=== PATIENT | male | born 1960 | race Caucasian/White ===

== ENCOUNTER → 2021-01-17 | Day surgery (SDC) | payer MEDICARE, MEDICAID ==
[~2021-01-17] MED LIST: IPRATRPIUM/ALBUTEROL 0.5/2.5MG 3 ML NEBU. NEB PRN; IV RINGERS SOLUTION,LACTATED 1,000 ML IV SCH; LIDOCAINE 2% PF 5 ML VIAL. ONE; MIDAZOLAM HCL PF 2 MG/2 ML VIAL. IV ONE; ONDANSETRON PF 4 MG/2 ML VIAL. IV PRN; OXYC5TAB98 PO; PROPOFOL 10,000 MCG/ML (20ML) VIAL IV ONE
[2021-01-17 14:14] VITALS: BP 161/91
== END | disposition home or self-care (01) ==
LOC: SURG 11:37
PROVIDERS: ATTEND Internal Medicine Gastroenterology
DX: Z12.11 Encounter for screening for malignant neoplasm of colon (principal); K63.5 Polyp of colon; K63.89 Other specified diseases of intestine; K57.30 Diverticulosis of large intestine without perforation or abscess without bleeding; K64.8 Other hemorrhoids; I10 Essential (primary) hypertension; E78.00 Pure hypercholesterolemia, unspecified
CPT/HCPCS: 45381; 45385; J2001; J2704; 88305

== ENCOUNTER → 2021-02-28 | Day surgery (SDC) | payer MEDICARE, MEDICAID ==
[~2021-02-28] MED LIST changes: +AMLO1TAB93 PO; +ATOR40TA59 PO; +DULO60CA6 PO; +HYDR-2145 PO; +KETAMINE HCL IN NACL, ISO-OSM 50 MG/5 ML SYRINGE ONE; +LISI40TA6 PO; +METO50TA29 PO; +METOPROLOL TARTRATE 5 MG/5 ML VIAL. ONE
[2021-02-28 13:07] VITALS: BP 181/93
--- NOTE | 2021-03-05 15:08 | PATHOLOGY ---
[facility] Accession Number: [id number] . 01 Material submitted: . PART A: sigmoid colon - SIGMOID COLON PART B: colon - TRANSVERSE COLON. Modifiers: transverse PART C: colon - DESCENDING COLON. Modifiers: descending . 01 Clinical history: . HX COLON POLYPS . 02 Diagnosis: A. Colon biopsy, sigmoid colon polyp: - Leiomyoma. See comment. . B. Colon biopsy, transverse colon polyp: - Tubular adenoma. . C. Colon biopsy, descending colon polyp: - Tubular adenoma. (JPM:tiera; 03/04/2021) S 03/05/2021 1434 Local . 02 Comment: Sections of the sigmoid colon biopsy reveal a polypoid segment of colonic mucosa. The mucosa surmounts a rounded, solid proliferation of bland appearing smooth muscle cells having a whorled appearance. The findings are consistent with a leiomyoma. . Sections of the transverse colon and descending colon biopsies reveal tubular adenomas showing no high grade dysplasia or evidence of malignancy. (JPM:tiera; 03/04/2021) . 02 Electronically signed: . Zoran Jaimes MD, Pathologist NPI- [id number] . 01 Gross description: . A. The specimen is received in formalin, labeled "Brijesh, Justyn, sigmoid". Received is a segment of pale fournier tissue measuring 0.4 cm in maximum dimensions. The specimen is submitted entirely in cassette A1. . B. The specimen is received in formalin, labeled "Brijesh, Justyn, transverse". Received is a segment of pale fournier to dark fournier tissue measuring 0.8 x 0.8 x 0.5 cm in greatest dimensions with an attached stalk measuring 0.4 cm in length by 0.2 cm in diameter. The surgical margin is inked. The specimen is sectioned into 2 pieces and entirely submitted in cassette B1. . All submitted within the specimen container is a segment of pale fournier tissue measuring 0.5 x 0.5 x 0.4 cm in maximum dimensions. The specimen is submitted entirely in cassette B2. . C. The specimen is received in formalin, labeled "Brijesh, Justyn, descending colon". Received is a segment of dark fournier tissue measuring 0.5 x 0.4 x 0.4 cm in greatest dimensions. The surgical margin is inked. The specimen is sectioned into 2 pieces and entirely submitted in cassette C1.([facility]; 03/03/2021) [facility] 03/04/2021 1520 Local . 02 Pathologist provided ICD-10: D12.3, D12.4 . 02 CPT . 623940, 662373, 761248 Specimen Comment: A courtesy copy of this report has been sent to [phone] Specimen Comment: Report sent to Specimen Comment: A duplicate report has been generated due to demographic updates. Performed at: 01 [facility] [address] [facility] [address], [place] [id number] MD Marvin Wagner MD Phone: [phone] Performed at: [facility] [address] [place], [place] [id number] MD Zoran Jaimes MD Phone: [phone]
== END | disposition home or self-care (01) ==
LOC: SURG 10:10
PROVIDERS: ATTEND Internal Medicine Gastroenterology
DX: Z12.11 Encounter for screening for malignant neoplasm of colon (principal); Z86.010 Personal history of colon polyps; D12.2 Benign neoplasm of ascending colon; D12.3 Benign neoplasm of transverse colon; D12.5 Benign neoplasm of sigmoid colon; K57.30 Diverticulosis of large intestine without perforation or abscess without bleeding; K64.0 First degree hemorrhoids; K64.4 Residual hemorrhoidal skin tags; I10 Essential (primary) hypertension; E78.00 Pure hypercholesterolemia, unspecified; G47.33 Obstructive sleep apnea (adult) (pediatric); Z98.890 Other specified postprocedural states; Z79.899 Other long term (current) drug therapy
CPT/HCPCS: 45381; 45385; J2001; J2704; J3490; J7120; 88305